=== PATIENT | female | born 2000 | race Caucasian/White ===

== ENCOUNTER 2020-06-28 19:38 | Emergency (ER) | payer OTHER ==
[~2020-06-28] VITALS: Ht 162.6 cm; Wt 61.4 kg
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
[2020-06-28 20:08] LABS: BILIRUBIN,URINE NEGATIVE (NEG); CLARITY,URINE CLEAR; COLOR,URINE YELLOW; NITRITE,URINE NEGATIVE (NEG); PROTEIN,URINE NEGATIVE (NEG-TRACE); UROBILINOGEN,URINE 0.2 mg/dL (0.2 mg/dL)
[2020-06-28 20:13] LABS: BACTERIA,URINE FEW /HPF (0-FEW); RBC,URINE 0 /HPF (0-2)
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
[2020-06-28] MEDS ORDERED: HYDR-3164 PO (21:26)
[2020-06-28] MEDS ORDERED: NAPR-683 PO (21:26)
[2020-06-28 21:30] VITALS: BP 128/75
== END 2020-06-28 21:34 | disposition home or self-care (01) ==
LOC: ER 19:38
DX: S50.01XA Contusion of right elbow, initial encounter (principal); S20.211A Contusion of right front wall of thorax, initial encounter; S40.011A Contusion of right shoulder, initial encounter; M54.5 Low back pain; R20.2 Paresthesia of skin; V49.59XA Passenger injured in collision with other motor vehicles in traffic accident, initial encounter; Y92.488 Other paved roadways as the place of occurrence of the external cause; Y93.89 Activity, other specified; Y99.8 Other external cause status
CPT/HCPCS: 71045; 72170; 73030; 73060; 73080; 81001; 81025; 99284-25